=== PATIENT | male | born 1970 | race Two or more races ===

== ENCOUNTER 2024-09-07 16:24 | Emergency (ER) | payer OTHER ==
[~2024-09-07] VITALS: Ht 170.2 cm; Wt 73.9 kg
[2024-09-07] MEDS ORDERED: DEXAMETHASONE SODIUM PHOSPHATE 4 MG/ML VIAL IM STA (16:49)
[2024-09-07] MEDS ORDERED: ORPHENADRINE CITRATE 30 MG/ML AMPUL IM STA (16:50)
[2024-09-07] MEDS ORDERED: KETOROLAC TROMETHAMINE 15 MG VIAL IM STA (16:51)
[2024-09-07] MEDS ORDERED: NORFLEX100MG PO (19:26)
== END 2024-09-07 19:48 | disposition home or self-care (01) ==
LOC: ER 16:26
DX: S60.222A Contusion of left hand, initial encounter (principal); S50.02XA Contusion of left elbow, initial encounter; W10.8XXA Fall (on) (from) other stairs and steps, initial encounter; Y93.89 Activity, other specified; Y92.89 Other specified places as the place of occurrence of the external cause; Y99.9 Unspecified external cause status